=== PATIENT | male | born 1990 | race Caucasian/White ===

== ENCOUNTER 2020-02-21 16:12 | Emergency (ER) | payer SELFPAY ==
[~2020-02-21] VITALS: Ht 172.7 cm; Wt 63.6 kg
[2020-02-21 16:15] VITALS: BP 160/89
--- NOTE | 2020-02-21 16:38 | PHYS DOC ---
General Adult EDM: Chief Complaint: MECHANICAL FALL HPI: HPI: 29-year-old male past medical history of tobacco dependence, vaping, marijuana use, nephrolithiasis was discussed ED and stent placement, presents to the ED with complaints of left hip pain/proximal leg pain, and right hand nondominant pain with swelling after patient rolled off a hotel bed approximately 3 to 4 feet off the ground last night. Patient states he was drinking alcohol with a coworker and does not recall specific trauma or mechanism of how he fell, woke up on the floor around 3/4:00 am. Is not on any anticoagulants. Has no midline neck pain. Does report he drinks alcohol daily. States he has tingling from his knee down to his foot, but no left knee or ankle pain, no joint swelling. Is concerned his left hip is out of socket. Can bear weight on the hip but this worsens the pain. Denies any IVDU or punching injury or right hand. No prior injury to hip/hand. Hasn't taken anything for the pain. Is voiding w/o difficulty. Review of Systems: Review of Systems: Constitutional: Denies fever or chills. [] Eyes: Denies change in visual acuity. [] HENT: Denies nasal congestion or sore throat. [] Respiratory: Denies cough or shortness of breath. [] Cardiovascular: Denies chest pain or edema. [] No syncope GI: Denies abdominal pain, nausea, vomiting, bloody stools or diarrhea. [] : Denies dysuria. [] Or hematuria Musculoskeletal: Denies midline back pain, saddle anesthesia, urinary or bowel retention or incontinence Integument: Denies rash. [] Neurologic: Denies headache, focal weakness or sensory changes. [] Denies midline neck pain or nuchal rigidity Endocrine: Denies polyuria or polydipsia. [] Lymphatic: Denies swollen glands. [] Psychiatric: Denies depression or anxiety. [] Heart Score: Risk Factors: Risk Factors: DM, Current or recent (<one month) smoker, HTN, HLP, family history of CAD, obesity. Risk Scores: Score 0 - 3: 2.5% MACE over next 6 weeks - Discharge Home Score 4 - 6: 20.3% MACE over next 6 weeks - Admit for Clinical Observation Score 7 - 10: 72.7% MACE over next 6 weeks - Early Invasive Strategies Allergies: Allergies: Allergies Coded Allergies Type Severity Reaction Last Updated Verified No Known Drug Allergies 02/21/20 No Physical Exam: PE: Constitutional: Well developed, well nourished, no acute distress, non-toxic appearance. [] HENT: Normocephalic, atraumatic, bilateral external ears normal, oropharynx moist, no oral exudates, nose normal. [] Eyes: PERRLA, EOMI, conjunctiva normal, no discharge. [] Neck: Normal range of motion, no tenderness, supple, no stridor. [] Cardiovascular:Heart rate regular rhythm, no murmur [] Lungs & Thorax: Bilateral breath sounds clear to auscultation [] Abdomen: Bowel sounds normal, soft, no tenderness, no masses, no pulsatile masses. [] Skin: Warm, dry, no erythema, no rash. [] capillary refill < 1 sec in right digits, Back: No tenderness, no CVA tenderness. [] Extremities: no cyanosis, no clubbing, petechia over proximal thigh/hip w/ ttp - bears weight/can straighten his leg, right non dominant hand with diffuse swelling/edema and ttp over palm and proximal digits (appears to be fluid retention vs trauma), no erythema, flexor posturing/pain w/passive extension or uniform digital swelling, equal radial pulses bl, no swelling of forearm, no pain at elbow or shoulder joints, no left knee/fibular head ttp Neurologic: Alert and oriented X 3, normal motor function, normal sensory function, no focal deficits noted. [] Psychologic: Affect normal, judgement normal, mood normal. [] EKG: EKG: [] Radiology/Procedures: Radiology/Procedures: IMAGING REPORT Signed PATIENT: JEOVANY BOLANOS ACCOUNT: [id number] : 1990 LOCATION: ER AGE: 29 SEX: M EXAM STATUS: REG ER ORD. PHYSICIAN: LAUREN CHAHAL DO REASON: Fall with hip pain and hand swelling and pain PROCEDURE: HIP LEFT 2V WITH PELVIS EXAM: HIP LEFT 2V WITH PELVIS, WRIST 3V RIGHT, HAND RIGHT 3V 02/21/2020 4:47 PM CLINICAL INDICATION:Fall with hip pain and hand pain and swelling COMPARISON:None TECHNIQUE:3 views of the pelvis and left hip, 3 views of the right wrist, 3 views of the right hand FINDINGS: Left hip: No acute fracture. Alignment is normal. The hips, sacroiliac joints, pubic symphysis, and lower lumbar spine are normal. Right wrist: No acute fracture. Alignment is normal. Joint spaces are maintained. No soft tissue abnormality. Right hand: No acute fracture. Alignment is normal. Joint spaces are maintained. There is an incidental carpal boss. Diffuse soft tissue swelling along the dorsal and lateral aspect of the hand. IMPRESSION: 1. Normal left hip. 2. No acute osseous abnormality of the right wrist or hand. Dorsal and lateral soft tissue swelling. Electronically signed by: Claritza Villarreal MD (02/21/2020 5:11 PM) [id number] DICTATED and SIGNED BY: CLARITZA VILLARREAL MD DATE: 02/21/20 1711 Course & Med Decision Making: Course & Med Decision Making Pertinent Labs and Imaging studies reviewed. (See chart for details) Concern for left hip contusion and diffuse right hand edema with no cellulitis/rash or crepitus. X-rays with no obvious fracture. Patient able to bear weight on left hip. No erythema or rash. Nexus criteria negative. When I told pt his xrays showed no fx or dislocation he reports "Fine just get my out of here, I want to go home." I encouraged conservative measures with [id number] analgesia, ice packs to minimize swelling and rice instructions. Strict ED return precautions given for severe pain, neurologic deficits or repeat injury. Encouraged urgent outpatient follow-up with PMD and Ortho in 48-72 hours. Life-threatening processes were considered but are low suspicion at this time, given history and physical exam. Pt was educated on all prescription medications and adverse effects. All patient's questions were answered and pt was stable at time of discharge. Life-threatening differential includes intracranial hemorrhage, diffuse axonal injury, spinal cord syndrome, unstable cervical fracture or SCIWORA, fractures or joint dislocations, neurovascular injuries, organ injury or laceration, pneumothorax, pneumoperitoneum, pericardial tamponade, unstable pelvic fracture, compartment syndrome, flail chest or respiratory distress, burn injury or asphyxiation I spoken with the patient and her caregivers. I explained the patient's condition, diagnoses and treatment plan based on the information available to me at this time. I have answered the patient and her caregiver's questions and addressed any concerns. The patient and her caregivers have a good understanding of patient's diagnosis, condition and treatment plan as can be expected at this point. Vital signs have been stable. Patient's condition is stable and appropriate for discharge from the emergency department. Patient will pursue further outpatient evaluation with primary care physician or other designated or consulting physician as outlined in the discharge instructions. The patient and/or caregivers are agreeable to this plan of care and follow-up instructions have been explained in detail. The patient and/or caregivers have received these instructions in written form and have expressed an understanding of the discharge instructions. The patient and/or caregivers are aware that any significant change of condition or worsening of symptoms should prompt immediate return to this or the closest emergency department or call to [facility]. Demarco Disclaimer: Demarco Disclaimer: This electronic medical record was generated, in whole or in part, using a voice recognition dictation system. Departure Departure Impression: Primary Impression: Swelling of right hand Additional Impression: Left hip pain Disposition: 01 HOME, SELF-CARE Condition: STABLE Referrals: NO PCP (PCP) Family Medicine Address: [address] [facility] [address] [place] [address] Patient Instructions: Hand Contusion, Hip Pain, RICE - Routine Care for Injuries Additional Instructions: Orthopaedic Sports Medicine Orthopaedic Surgery [facility] Address: [address] [place] [address] [facility] DEPARTMENT GENERAL DISCHARGE INSTRUCTIONS Thank you for coming to [facility] Emergency Department (ED) today and trusting us with you care. We trust that you had a positive experience in our Emergency Department. If you wish to speak to the department management, you may call the Director at [phone]. YOUR FOLLOW UP INSTRUCTIONS ARE FOLLOWS: 1. Do you have a private Doctor? If you do not have a private doctor, please ask for a resource list of physicians or clinics that may be able to assist you with follow up care. 2. The Emergency Physicain has interpreted your x-rays. The X-Ray specialist will also review them. If there is a change in the findings, you will be notified in 48 hours when at all possible. 3. A lab test or culture has been done, your results will be reviewed and you will be notified if you need a change in treatment. ADDITIONAL INSTRUCTIONS AND INFORMATION: 1. Your care today has been supervised by a physician who is specially trained in emergency care. Many problems require more than one evaluation for a complete diagnosis and treatment. We recommend that you schedule your follow up appointment as recommended to ensure complete treatment of you illness or injury. If you are unable to obtain follow up care and continue to have a problem, or if your condition worsens, we recommend that you return to the ED. 2. We are not able to safely determine your condition over the phone nor are we able to give sound medical advice over the phone. For these safety reasons, if you call for medical advice we will ask you to come to the ED for further evaluation. 3. If you have any questions regarding these discharge instructions please call the ED at [phone]. SAFETY INFORMATION: In the interest of safety, wellness, and injury prevention; we encourage you to wear your sealbelt, if you smoke; quite smoking, and we encourage family to use a protective helmet for bicycling and other sporting events that present an increased risk for head injury. IF YOUR SYMPTOMS WORSEN OR NEW SYMPTOMS DEVELOP, OR YOU HAVE CONCERNS ABOUT YOUR CONDITION; OR IF YOUR CONDITION WORSENS WHILE YOU ARE WAITING FOR YOUR FOLLOW UP APPOI NTMENT; EITHER CONTACT YOUR PRIMARY CARE DOCTOR, THE PHYSICIAN WHOSE NAME AND NUMBER YOU WERE GIVEN, OR RETURN TO THE ED IMMEDIATELY. Scripts Ibuprofen (IBUPROFEN) 600 Mg Tablet 600 MG PO PRN Q6HRS PRN for PAIN, #20 TAB take with food or milk Prov: LAUREN CHAHAL DO 02/21/20 LAUREN CHAHAL DO Feb 21, 2020 16:38
--- NOTE | 2020-02-21 17:14 | RAD ---
EXAM: HIP LEFT 2V WITH PELVIS, WRIST 3V RIGHT, HAND RIGHT 3V 02/21/2020 4:47 PM CLINICAL INDICATION:Fall with hip pain and hand pain and swelling COMPARISON:None TECHNIQUE:3 views of the pelvis and left hip, 3 views of the right wrist, 3 views of the right hand FINDINGS: Left hip: No acute fracture. Alignment is normal. The hips, sacroiliac joints, pubic symphysis, and lower lumbar spine are normal. Right wrist: No acute fracture. Alignment is normal. Joint spaces are maintained. No soft tissue abnormality. Right hand: No acute fracture. Alignment is normal. Joint spaces are maintained. There is an incidental carpal boss. Diffuse soft tissue swelling along the dorsal and lateral aspect of the hand. IMPRESSION: 1. Normal left hip. 2. No acute osseous abnormality of the right wrist or hand. Dorsal and lateral soft tissue swelling. Electronically signed by: Claritza Villarreal MD (02/21/2020 5:11 PM) [id number]
[2020-02-21] MEDS ORDERED: IBUP-1007 PO (18:18)
== END 2020-02-21 18:35 | disposition home or self-care (01) ==
LOC: ER 16:12
DX: M25.552 Pain in left hip (principal); R22.31 Localized swelling, mass and lump, right upper limb; G89.11 Acute pain due to trauma; M79.641 Pain in right hand; M79.605 Pain in left leg; M54.2 Cervicalgia; Z72.0 Tobacco use; W18.39XA Other fall on same level, initial encounter; Y93.89 Activity, other specified; Y92.89 Other specified places as the place of occurrence of the external cause; Y99.8 Other external cause status
CPT/HCPCS: 73110; 73130; 73502; 99284